=== PATIENT | male | born 1965 | race Caucasian/White ===

== ENCOUNTER → 2021-01-25 09:50 | Outpatient (CLI) | payer OTHER, SELFPAY ==
--- NOTE | 2021-01-25 09:55 | DI.RAD.S_ITS ---
PROCEDURE: XR KNEE LT 3V INDICATIONS: contusion x2 wks ago, increased pain, r/o fx/joint effusion TECHNIQUE: Three views of the knee were acquired. COMPARISON: None. FINDINGS: Bones: No acute fractures or dislocations. Mild subchondral sclerosis is seen in the medial tibial plateau. A small osseous protuberance is seen at the posterolateral aspect of the proximal tibial metadiaphysis that may represent a small osteochondroma. Soft tissues: No joint effusion. No suspicious soft tissue calcifications. IMPRESSION: 1. No acute osseous abnormality. If clinical suspicion and/or symptoms persist, additional imaging with repeat plain films, or advanced imaging (e.g. CT, MRI) may be helpful for further assessment. 2. Probable small osteochondroma at the posterolateral aspect of the proximal tibial metadiaphysis. Dictated by: Raz Taylor M.D. on 01/25/2021 at 10:16 Approved by: Raz Taylor M.D. on 01/25/2021 at 10:20
== END ==
PROVIDERS: Referring Provider Physician Assistant; Visit Provider Physician Assistant
DX: S80.02XA Contusion of left knee, initial encounter (principal)
CPT/HCPCS: 73562